=== PATIENT | female | born 1960 | race African-American/Black ===

== ENCOUNTER 2023-07-27 00:02 | Inpatient (IN) | payer MEDICAID ==
[~2023-07-27] VITALS: Ht 167.6 cm; Wt 91.7 kg
[2023-07-27 00:40] LABS: EOSINOPHILS % 1.8 % (0.0-5.0); HEMATOCRIT. 38.7 % (36.0-48.0); HEMOGLOBIN. 13.2 g/dL (12.0-16.0); MEAN CORPUSCULAR HEMOGLOBIN 31.2 pg (28.0-32.0); MEAN CORPUSCULAR HGB CONC 34.1 g/dL (31.0-37.0); MEAN CORPUSCULAR VOLUME 91.5 fL (81.0-99.0); MEAN PLATELET VOLUME 8.3 fl (7.4-10.4); MONOCYTES % 7.1 % (2.0-8.0); NEUTROPHILS % 52.1 % (40.0-76.0); PLATELET 291 x1000/uL (130-400); RED BLOOD CELL COUNT 4.23 mill/uL (4.2-5.4); RED CELL DISTRIBUTION WIDTH 14.9 % (11.6-14.6); WHITE BLOOD COUNT 7.1 x1000/uL (4.5-11.0)
[2023-07-27 01:02] LABS: CHLORIDE 105 mEq/L (98-107); POTASSIUM 3.8 mEq/L (3.5-5.1); SODIUM 140 mEq/L (136-145)
[2023-07-27 01:03] LABS: CALCIUM 9.1 mg/dL (8.7-10.4); CARBON DIOXIDE 26 mEq/L (21-32)
[2023-07-27 01:07] LABS: CREATININE 0.9 mg/dL (0.6-1.0)
[2023-07-27 01:08] LABS: GLUCOSE 187 mg/dL (70-105); UREA NITROGEN BLOOD 12 mg/dL (9-23)
[2023-07-27 01:10] LABS: TROPONIN I HIGH SENSITIVITY 18 ng/L (3.0-34)
[2023-07-27] MEDS: IOHEXOL-350 100 ML BOTTLE ONE (05:19)
[2023-07-27] MEDS: HYDRALAZINE 20MG/ML VIAL IV PRN ×3 (09:12→18:46)
[2023-07-27] MEDS ORDERED: ACETAMINOPHEN 325MG TABLET PO PRN ×2 (14:15)
[2023-07-27] MEDS ORDERED: ONDANSETRON HCL 4MG/2ML INJ IV PRN (14:15)
[2023-07-27] MEDS ORDERED: DEXTROSE 50% WATER 50ML SYRINGE IV PRN (14:15)
[2023-07-27] MEDS ORDERED: DOCUSATE SODIUM 100MG CAPSULE PO PRN (14:15)
[2023-07-27 14:57] VITALS: BP 210/94; PULSE 92; RESP 21
[2023-07-27 15:21] VITALS: BP 210/94; PULSE 85; RESP 20; TEMP 98
[2023-07-27] MEDS: CLONIDINE 0.2MG TABLET PO PRN (15:44)
[2023-07-27] MEDS: PANTOPRAZOLE SODIUM 40 MG/VIAL IV SCH (15:44)
[2023-07-27 16:18] VITALS: BP 197/89; PULSE 80; RESP 19; TEMP 98; TEMP 98.5
[2023-07-27 16:27] VITALS: PULSE 83; RESP 18; O2SAT 95
[2023-07-27] MEDS: IPRATROPIUM/ALBUTEROL 0.5-3(2.5)MG/3ML NEB HHN PRN (16:27)
[2023-07-27 16:30] LABS: INR 0.9; PROTHROMBIN TIME 10.6 sec (9.6-11.0)
[2023-07-27] MEDS: BLOOD SUGAR DIAGNOSTIC STRIP TEST SCH (16:50)
[2023-07-27] MEDS: INSULIN LISPRO 100 UNITS/ML SUBCUT SCH (17:20)
[2023-07-27 21:06] VITALS: BP 187/83; PULSE 87; RESP 21; TEMP 98.6
[2023-07-27] MEDS: HYDRALAZINE HCL 25MG TABLET PO SCH (21:10)
[2023-07-27 23:23] LABS: CREATINE KINASE MB FRACTION 0.7 ng/mL (0.5-3.6)
[2023-07-28 00:11] VITALS: BP 186/86; PULSE 63; RESP 18; TEMP 98.7
[2023-07-28 00:53] LABS: CLARITY URINE CLEAR (CLEAR); COLOR URINE YELLOW (YELLOW); GLUCOSE URINE NEGATIVE (NEGATIVE); KETONES URINE NEGATIVE (NEGATIVE); LEUKOCYTE ESTERASE URINE TRACE (NEGATIVE); NITRITE URINE NEGATIVE (NEGATIVE); OCCULT BLOOD URINE NEGATIVE (NEGATIVE); PH URINE 7.5 (4.5-8.0); PROTEIN URINE NEGATIVE (NEGATIVE); SPECIFIC GRAVITY URINE 1.019 (1.005-1.030)
[2023-07-28 00:57] LABS: *AMPHETAMINES SCREEN URINE NEGATIVE (NEGATIVE); *BARBITURATES SCREEN URINE NEGATIVE (NEGATIVE); *BENZODIAZEPINES SCREEN URINE NEGATIVE (NEGATIVE); *COCAINE SCREEN URINE NEGATIVE (NEGATIVE); CANNABINOID URINE SCREEN PRESUMPTIVE POSITIVE (NEGATIVE); METHADONE URINE SCREEN NEGATIVE (NEGATIVE); OPIATES URINE SCREEN NEGATIVE (NEGATIVE); PHENCYCLIDINE URINE SCREEN NEGATIVE (NEGATIVE)
[2023-07-28 00:58] LABS: ECSTASY MDMA SCREEN URINE NEGATIVE (NEGATIVE)
[2023-07-28 01:30] LABS: WBC URINE 0-2 /hpf (0-2)
[2023-07-28 01:31] LABS: BACTERIA URINE NONE SEEN; RBC URINE 0-2 /hpf (0-2); SQUAMOUS EPITHELIAL CELL URINE FEW /lpf (RARE/1+)
[2023-07-28 04:00] VITALS: PULSE 63; RESP 20; TEMP 98.9
[2023-07-28 06:29] LABS: BASOPHILS % 0.6 % (0.0-2.0); EOSINOPHILS % 1.3 % (0.0-5.0); HEMATOCRIT. 41.8 % (36.0-48.0); HEMOGLOBIN. 14.1 g/dL (12.0-16.0); LYMPHOCYTES % 30.5 % (20.0-50.0); MEAN CORPUSCULAR HEMOGLOBIN 30.7 pg (28.0-32.0); MEAN CORPUSCULAR HGB CONC 33.9 g/dL (31.0-37.0); MEAN CORPUSCULAR VOLUME 90.6 fL (81.0-99.0); MEAN PLATELET VOLUME 8.9 fl (7.4-10.4); MONOCYTES % 8.3 % (2.0-8.0); NEUTROPHILS % 59.3 % (40.0-76.0); PLATELET 290 x1000/uL (130-400); RED BLOOD CELL COUNT 4.61 mill/uL (4.2-5.4); RED CELL DISTRIBUTION WIDTH 15.1 % (11.6-14.6)
[2023-07-28 06:41] LABS: CHLORIDE 102 mEq/L (98-107); POTASSIUM 3.7 mEq/L (3.5-5.1); SODIUM 138 mEq/L (136-145)
[2023-07-28 06:43] LABS: TROPONIN I HIGH SENSITIVITY 23 ng/L (3.0-34)
[2023-07-28 06:45] LABS: CALCIUM 10.2 mg/dL (8.7-10.4); CARBON DIOXIDE 25 mEq/L (21-32)
[2023-07-28 06:49] LABS: CREATININE 0.8 mg/dL (0.6-1.0)
[2023-07-28 06:50] LABS: GLUCOSE 168 mg/dL (70-105); UREA NITROGEN BLOOD 10 mg/dL (9-23)
[2023-07-28 06:51] LABS: ALANINE AMINOTRANSFERASE 11 IU/L (10-49); ALBUMIN 4.2 g/dL (3.2-4.8); ASPARTATE AMINOTRANSFERASE 16 IU/L (<34)
[2023-07-28 06:52] LABS: BILIRUBIN DIRECT 0.2 mg/dL (<=3.0); BILIRUBIN TOTAL 0.6 mg/dL (0.1-1.0); CREATINE KINASE 52 IU/L (34-145); PROTEIN TOTAL 7.3 g/dL (6.0-8.3)
[2023-07-28 08:00] VITALS: BP 152/74; PULSE 73; RESP 22; TEMP 98.7
[2023-07-28] MEDS: AMLODIPINE 10MG TABLET PO SCH (09:02)
[2023-07-28] MEDS: LOSARTAN 25 MG TABLET PO SCH (11:22)
[2023-07-28 12:00] VITALS: PULSE 72; RESP 21; TEMP 98.5
[2023-07-28] MEDS: HYDRALAZINE HCL 25MG TABLET PO SCH (13:30)
[2023-07-28 15:39] VITALS: BP 175/89; PULSE 79; RESP 20; TEMP 98.5
[2023-07-28 16:29] VITALS: BP 170/84; PULSE 84; TEMP 98.1; O2SAT 95
[2023-07-29] MEDS ORDERED: FAMOTIDINE 20MG/2ML VIAL IV SCH (09:00)
== END 2023-07-28 17:00 | disposition home or self-care (01) | DRG 199 ==
LOC: ER 00:02 → EDBD 00:02 → 3WST 05:19 → EDBEDREQ 05:42 → EDBEDREQTM 05:42
PROVIDERS: ADMIT Internal Medicine; ATTEND Internal Medicine
DX: I16.0 Hypertensive urgency (principal); I71.21 Aneurysm of the ascending aorta, without rupture; I11.9 Hypertensive heart disease without heart failure; E11.9 Type 2 diabetes mellitus without complications; R07.89 Other chest pain; I25.10 Atherosclerotic heart disease of native coronary artery without angina pectoris; R06.03 Acute respiratory distress; J98.11 Atelectasis; F32.A Depression, unspecified; F41.9 Anxiety disorder, unspecified; J45.909 Unspecified asthma, uncomplicated; F17.210 Nicotine dependence, cigarettes, uncomplicated; Z86.79 Personal history of other diseases of the circulatory system; Z79.899 Other long term (current) drug therapy
CPT/HCPCS: 36415; 71045; 71275; 74174; 76700; 80048; 80076; 80305; 81003; 82550; 82553; 82962; 83036; 83880; 84484; 85025; 93005; 93306; 94640; 99285; C9113; J0360; J1815; Q9967